=== PATIENT | male | born 1990 ===

== ENCOUNTER 2017-10-15 13:23 | Day surgery (SDC) | payer BC ==
[2017-10-15 13:24] VITALS: BMI 31.4
[2017-10-15] MEDS ORDERED: Sodium Chloride 0.9% 1,000 ML IV STA (15:09)
--- NOTE | 2017-10-15 15:12 | C.PDOC ---
History Of Present Illness 27 year old male is sent to the ED by Dr. Dee for evaluation of epistaxis that has been going on for a couple of days. Patient was seen by Dr. Dee who packed his nose B/L but patient still was complaining of blood oozing from his nose. Patient will be admitted for same day surgery in the OR for cauterization. Patient looks uncomfortable during examination and is currently c /o of pressure in his nose, denies headache, dizziness, CP, SOB, fever, chills, nausea, vomit. Time Seen by Provider: 10/15/17 13:43 Chief Complaint (Nursing): ENT Problem History Per: Patient History/Exam Limitations: None Onset/Duration Of Symptoms: Days Current Symptoms Are (Timing): Still Present Symptoms Have Been: Continuous Anticoagulant/Antiplatlet Use?: No Recent Aspirin Use: No Past Medical History Reviewed: Historical Data, Nursing Documentation, Vital Signs Vital Signs: Last Vital Signs Temp 99.7 F H 10/15/17 13:40 Pulse 78 10/15/17 17:43 Resp 20 10/15/17 17:43 BP 138/83 10/15/17 17:43 Pulse Ox 98 10/15/17 17:43 - Medical History PMH: No Chronic Diseases Surgical History: No Surg Hx Family History: States: Unknown Family Hx - Social History Hx Alcohol Use: Yes Hx Substance Use: No - Immunization History Hx Tetanus Toxoid Vaccination: No Review Of Systems Constitutional: Negative for: Fever, Chills ENT: Positive for: Nose Discharge Cardiovascular: Negative for: Chest Pain, Palpitations Respiratory: Negative for: Cough, Shortness of Breath Gastrointestinal: Negative for: Nausea, Vomiting, Abdominal Pain Genitourinary: Negative for: Dysuria, Hematuria Musculoskeletal: Negative for: Back Pain Skin: Negative for: Rash Neurological: Negative for: Weakness, Numbness Physical Exam - Physical Exam Appears: Non-toxic, Other (Uncomfortable ) Skin: Normal Color, Warm, Dry Head: Atraumatic, Normacephalic Eye(s): bilateral: Normal Inspection Nose: Epistaxis, Other (packing placed in both nosetrils, dry blod around nose and upper lip, no active bleeding ) Oral Mucosa: Moist Neck: Normal ROM, Supple Chest: Symmetrical Cardiovascular: Rhythm Regular, No Murmur Respiratory: Normal Breath Sounds, No Rales, No Rhonchi, No Wheezing Gastrointestinal/Abdominal: Soft, No Tenderness, No Guarding, No Rebound Extremity: Normal ROM, No Pedal Edema, No Calf Tenderness, No Deformity, No Swelling Neurological/Psych: Oriented x3, Normal Speech, Normal Cognition Gait: Steady ED Course And Treatment - Laboratory Results Result Diagrams: 10/15/17 15:29 10/15/17 15:29 O2 Sat by Pulse Oximetry: 97 (On RA) Pulse Ox Interpretation: Normal Progress Note: Plan: -Labs. -IV fluids. -Morphine 4 mg IV. -UA. Patient will be admitted to Dr. Dee's service for same day surgery. Disposition - Disposition Disposition: HOSPITALIZED Disposition Time: 15:12 Condition: STABLE - Clinical Impression Clinical Impression: Epistaxis - PA / BOX LOADER / Resident Statement MD/DO has reviewed & agrees with the documentation as recorded. - Scribe Statement The provider has reviewed the documentation as recorded by the Scribe Seth Bales All medical record entries made by the Scribe were at my direction and personally dictated by me. I have reviewed the chart and agree that the record accurately reflects my personal performance of the history, physical exam, medical decision making, and the department course for this patient. I have also personally directed, reviewed, and agree with the discharge instructions and disposition. Decision To Admit - Pt Status Changed To: Hospital Disposition Of: SDS- Endo,OR,Cath,IR - . Bed Request Type: Same Day Surgery Admitting Physician: Mario Dee Patient Diagnosis: Epistaxis
[2017-10-15 15:35] LABS: BASO # 0.1 K/uL (0.0-0.2); BASO % 0.6 % (0.0-2.0); EOS # 0.1 K/uL (0.0-0.7); EOS % 0.7 % (0.0-4.0); HEMOGLOBIN 14.6 g/dL (12.0-18.0); LYMPH # 2.1 K/uL (1.0-4.3); LYMPH % 21.7 % (20.0-40.0); MEAN CELL VOLUME 86.7 fL (80.0-94.0); MEAN CORPUSCULAR HEMOGLOBIN 29.4 pg (27.0-31.0); MEAN CORPUSCULAR HGB CONC 33.9 g/dL (33.0-37.0); MEAN PLATELET VOLUME 8.2 fL (7.2-11.7); MONO # 0.9 K/uL (0.0-0.8); NEUT # 6.6 K/uL (1.8-7.0); NRBC % 0.1 % (0.0-2.0); RBC 4.98 Mil/uL (4.40-5.90); RED CELL DISTRIBUTION WIDTH 12.6 % (11.5-14.5); WHITE BLOOD COUNT 9.7 K/uL (4.8-10.8)
[2017-10-15] MEDS ORDERED: Morphine 4 MG/ML VIAL ONE (15:36)
[2017-10-15 15:40] LABS: URINE BILIRUBIN NEGATIVE (NEGATIVE); URINE BLOOD NEGATIVE (NEGATIVE); URINE CLARITY Clear (Clear); URINE COLOR Yellow (YELLOW); URINE GLUCOSE (UA) NORMAL (Normal); URINE LEUKOCYTE ESTERASE NEG Leu/uL (Negative); URINE NITRATE NEGATIVE (NEGATIVE); URINE PROTEIN NEGATIVE (NEGATIVE); URINE UROBILINOGEN NORMAL mg/dL (0.2-1.0)
[2017-10-15 15:43] LABS: INR 1.1; PROTHROMBIN TIME 12.5 SECONDS (9.7-12.2)
[2017-10-15 15:55] LABS: ALB/GLOB RATIO 1.2 (1.0-2.1); ALBUMIN 4.4 g/dL (3.5-5.0); ALT/SGPT 55 U/L (21-72); AST/SGOT 29 U/L (17-59); BLOOD UREA NITROGEN 9 mg/dL (9-20); CALCIUM 8.8 mg/dl (8.6-10.4); GFR AFRICAN-AMERICAN > 60; GFR NON-AFRICAN AMERICAN > 60
[2017-10-15] MEDS ORDERED: HYDROmorphone 1 mg/ml ISec IVP STA (17:31)
[2017-10-15] MEDS ORDERED: Lactated Ringer's 1,000 ML IV ONE ×2 (18:19)
[2017-10-15] MEDS: Clindamycin 600mg/50ml NS 600 MG/50 ML BAG IVPB ONE ×2 (18:19→18:40)
[2017-10-15] MEDS ORDERED: EPINEPHrine 1:1000 Nasal Sol(30mL) ONE (18:31)
[2017-10-15] MEDS ORDERED: Midazolam 2 MG/2 ML VIAL ONE (18:33)
[2017-10-15] MEDS ORDERED: Rocuronium 10 mg/ml (5 ml) ONE (18:33)
[2017-10-15] MEDS ORDERED: Propofol 10 mg/ml Inj (20 ML) ONE ×2 (18:33→18:52)
[2017-10-15] MEDS ORDERED: Succinylcholine Chloride 20 mg/ml Syr (5 ml) IV ONE (18:33)
[2017-10-15] MEDS ORDERED: Acetaminophen-Codeine 300/30 mg Tab PO PRN (18:36)
[2017-10-15] MEDS ORDERED: Dextrose 5%/0.45% NS 1,000 ML IV SCH (18:45)
[2017-10-15] MEDS ORDERED: Esmolol 100 mg/10ml Inj IV ONE (18:58)
[2017-10-15] MEDS ORDERED: Neostigmine Methylsulfate 3mg/3ml Syringe IV ONE (19:28)
[2017-10-15 21:01] VITALS: BP 119/76; PULSE 95; RESP 18; TEMP 98.2; O2SAT 99
--- NOTE | 2017-10-16 01:57 | OP ---
PROCEDURE DATE: 10/15/2017 PREOPERATIVE DIAGNOSIS: Epistaxis, bilateral. POSTOPERATIVE DIAGNOSIS: Epistaxis, bilateral. PROCEDURE: Endoscopic cauterization of epistaxis. DESCRIPTION OF PROCEDURE: Patient was brought into the room, placed in supine position, anesthesia was initiated through an ET tube. The nasal packs were removed. Zero-degree scope was inserted into both nasal cavities. The posterolateral pharyngeal wall of the anterior aspect was cauterized. We used suction cautery to cauterize the area of the sphenopalatine artery on both sides. This was done first on the left and then on the right. No bleeding was noted. Patient was valsalva'd several times and bleeding was checked on both sides as the patient was being valsalva'd. No bleeding was noted. The scope was removed. Patient tolerated the procedure well. Mario Dee MD
== END 2017-10-15 22:00 | disposition home or self-care (01) ==
LOC: C.ER 13:23 → C.SDS 15:43
PROVIDERS: ATTEND Otolaryngology
DX: R04.0 Epistaxis (principal)
CPT/HCPCS: 31238; 80053; 81001; 82948; 85025; 85610; 85730; 86850; 86900; 96360; 96374; J1100; J1170; J2001; J2270; J2405; J2704; J2710; J2765; J3010; J7040; J7120

== ENCOUNTER 2017-10-21 17:34 | Inpatient (IN) | payer BC ==
[2017-10-21 17:34] VITALS: BMI 31.4
--- NOTE | 2017-10-21 19:03 | C.PDOC ---
History Of Present Illness 27 year old male sent in by Dr. Dee presents to ED with complaints of bleeding from his right nasal passage and denies past medical history. Patient notes he recently underwent surgery in his right nasal passage. Dr. Dee requests OR admission for cauterization. Time Seen by Provider: 10/21/17 18:59 Chief Complaint (Nursing): ENT Problem History Per: Patient History/Exam Limitations: None Current Symptoms Are (Timing): Still Present Past Medical History Reviewed: Historical Data, Nursing Documentation, Vital Signs Vital Signs: Last Vital Signs Temp 97.7 F 10/21/17 23:10 Pulse 98 H 10/21/17 23:10 Resp 20 10/21/17 23:10 BP 126/85 10/21/17 23:10 Pulse Ox 97 10/21/17 23:10 - Medical History PMH: No Chronic Diseases Other Surgeries: recent right nasal passage surgery Family History: States: Unknown Family Hx - Social History Hx Alcohol Use: Yes Hx Substance Use: Yes - Immunization History Hx Tetanus Toxoid Vaccination: No Review Of Systems Except As Marked, All Systems Reviewed And Found Negative. ENT: Positive for: Nose Discharge (bleeding from right nare) Physical Exam - Physical Exam Appears: No Acute Distress Skin: Normal Color, Warm, Dry Head: Atraumatic Eye(s): bilateral: Normal Inspection, PERRL, EOMI Ear(s): Bilateral: Normal Nose: Epistaxis (Mild bleed from right nare) Neck: Normal, Normal ROM ED Course And Treatment - Laboratory Results Result Diagrams: 10/21/17 19:10 10/21/17 19:10 O2 Sat by Pulse Oximetry: 98 (RA) Pulse Ox Interpretation: Normal - Physician Consult Information Outcome Of Conversation: 1900: d/w Dr. Dee @ bedside, ok to admit to OR now Medical Decision Making Medical Decision Making: R nasal epistaxis s/p recent R nasal surgery w Dr. Dee, to OR for cauterization now Disposition Doctor Will See Patient In The: Hospital Counseled Patient/Family Regarding: Studies Performed, Diagnosis - Disposition Disposition: HOSPITALIZED Disposition Time: 19:02 Condition: GOOD - Clinical Impression Clinical Impression: Epistaxis
[2017-10-21] MEDS ORDERED: EPINEPHrine 1:1000 Nasal Sol(30mL) ONE (19:12)
[2017-10-21] MEDS ORDERED: Clindamycin 600mg/50ml NS 600 MG/50 ML BAG IVPB ONE (19:15)
[2017-10-21 19:16] LABS: HEMOGLOBIN 13.8 g/dL (12.0-18.0); MEAN CELL VOLUME 85.3 fL (80.0-94.0); MEAN CORPUSCULAR HEMOGLOBIN 29.6 pg (27.0-31.0); MEAN CORPUSCULAR HGB CONC 34.7 g/dL (33.0-37.0); MEAN PLATELET VOLUME 8.2 fL (7.2-11.7); RBC 4.67 Mil/uL (4.40-5.90); RED CELL DISTRIBUTION WIDTH 12.6 % (11.5-14.5); WHITE BLOOD COUNT 9.5 K/uL (4.8-10.8)
--- NOTE | 2017-10-21 19:19 | CP.PCM.PN ---
Subjective - Date & Time of Evaluation Date of Evaluation: 10/21/17 Time of Evaluation: 19:18 - Subjective Subjective: Patient is bleeding on and off from the nose. Has moderate bleeding before. Since he is postop from the nasal surgery and can have another big bleeding episode anytime, will take to or eventhough he has something to eat 5 hours ago. Objective - Vital Signs/Intake and Output Vital Signs (last 24 hours): Temp Pulse Resp BP Pulse Ox 99.6 F 89 20 136/88 98 10/21/17 18:41 10/21/17 18:41 10/21/17 18:41 10/21/17 18:41 10/21/17 19:02
[2017-10-21] MEDS ORDERED: Rocuronium 10 mg/ml (5 ml) ONE (19:23)
[2017-10-21] MEDS ORDERED: Propofol 10 mg/ml Inj (20 ML) ONE (19:23)
[2017-10-21] MEDS ORDERED: Midazolam 2 MG/2 ML VIAL ONE (19:23)
[2017-10-21] MEDS ORDERED: Succinylcholine Chloride 20 mg/ml Syr (5 ml) IV ONE (19:23)
[2017-10-21] MEDS ORDERED: Lactated Ringer's 1,000 ML IV ONE ×2 (19:25→20:00)
[2017-10-21 19:27] LABS: INR 1.2; PROTHROMBIN TIME 13.6 SECONDS (9.7-12.2)
[2017-10-21 19:29] LABS: ALB/GLOB RATIO 1.1 (1.0-2.1); ALBUMIN 4.4 g/dL (3.5-5.0); ALT/SGPT 27 U/L (21-72); AST/SGOT 20 U/L (17-59); BLOOD UREA NITROGEN 10 mg/dL (9-20); CALCIUM 8.7 mg/dl (8.6-10.4); GFR AFRICAN-AMERICAN > 60; GFR NON-AFRICAN AMERICAN > 60
[2017-10-21] MEDS ORDERED: Lidocaine Hydrochloride 5 ML INJ ONE (20:16)
[2017-10-21] MEDS: HYDROmorphone 0.5 mg/0.5 ml ISec IVP PRN ×2 (20:35→20:50)
[2017-10-21] MEDS: Dextrose 5%/0.45% NS 1,000 ML IV SCH (21:50)
[2017-10-21] MEDS: Morphine 15 mg Immediate Release Tab PO PRN (23:47)
[2017-10-22 00:18] VITALS: RESP 20
[2017-10-22] MEDS: Morphine 15 mg Immediate Release Tab PO PRN ×3 (04:00→13:08)
[2017-10-22] MEDS: Dextrose 5%/0.45% NS 1,000 ML IV SCH ×3 (07:23→16:21)
--- NOTE | 2017-10-22 08:39 | CP.PCM.PN ---
Subjective - Date & Time of Evaluation Date of Evaluation: 10/22/17 Time of Evaluation: 08:38 - Subjective Subjective: s/p endoscopic nasal cautery nose: no epistaxis oc/op: no bloody pnd a/p: epistaxis controled d/c home f/u 1 week Objective - Vital Signs/Intake and Output Vital Signs (last 24 hours): Temp Pulse Resp BP Pulse Ox 98.6 F 81 20 121/79 95 10/22/17 08:24 10/22/17 08:24 10/22/17 08:24 10/22/17 08:24 10/22/17 08:24 Intake and Output: 10/22/17 10/22/17 06:59 18:59 Intake Total 200 Balance 200 - Medications Medications: Current Medications Dextrose/Sodium Chloride (Dextrose 5%/0.45% Ns 1000 Ml) 1,000 mls @ 100 mls/hr IV .Q10H [facility] Last Admin: 10/22/17 07:23 Dose: Not Given Morphine Sulfate (Morphine Immediate Release Tab) 15 mg PO Q4 PRN PRN Reason: Pain, moderate (4-7) Last Admin: 10/22/17 07:28 Dose: 15 mg - Labs Labs: 10/21/17 19:10 10/21/17 19:10 PT 13.6 SECONDS (9.7-12.2) H 10/21/17 19:10 INR 1.2 10/21/17 19:10 APTT 34 SECONDS (21-34) 10/21/17 19:10
[2017-10-22 11:43] LABS: BASO % 0.4 % (0.0-2.0); EOS # 0.1 K/uL (0.0-0.7); EOS % 0.8 % (0.0-4.0); HEMOGLOBIN 12.8 g/dL (12.0-18.0); LYMPH # 1.7 K/uL (1.0-4.3); LYMPH % 21.7 % (20.0-40.0); MEAN CORPUSCULAR HEMOGLOBIN 29.4 pg (27.0-31.0); MEAN CORPUSCULAR HGB CONC 33.8 g/dL (33.0-37.0); MEAN PLATELET VOLUME 8.2 fL (7.2-11.7); MONO % 12.8 % (0.0-10.0); NEUT # 5.1 K/uL (1.8-7.0); NEUT % 64.3 % (50.0-75.0); RBC 4.37 Mil/uL (4.40-5.90); RED CELL DISTRIBUTION WIDTH 12.6 % (11.5-14.5); WHITE BLOOD COUNT 7.9 K/uL (4.8-10.8)
[2017-10-22 12:13] LABS: ALB/GLOB RATIO 1.2 (1.0-2.1); ALBUMIN 3.9 g/dL (3.5-5.0); ALT/SGPT 25 U/L (21-72); AST/SGOT 25 U/L (17-59); BLOOD UREA NITROGEN 8 mg/dL (9-20); CALCIUM 8.9 mg/dl (8.6-10.4); GFR AFRICAN-AMERICAN > 60; GFR NON-AFRICAN AMERICAN > 60
[2017-10-22] MEDS: Sodium Chloride Nasal 0.65% Soln (30ml) NAS SCH ×2 (14:45→17:49)
[2017-10-22] MEDS: Oxycodone/Acetaminophen 5/325 mg Tab PO PRN ×2 (16:15→20:26)
--- NOTE | 2017-10-22 19:11 | CP.PCM.CON ---
History of Present Illness - History of Present Illness History of Present Illness: 27 yo man admitted with recurrent epistaxis, after DNS surgery, s/p cauterization x2, having repeat bleeding this AM. The patient denies easy bleeding, bruising, bleeding post dental work or post surgical bleeding. His mother gives a history of nose bleeds at a young age, that stopped on its own without intervention, has not had any bleeds since the age of 6. His mother also gives a history of ? sickle cell anemia, treated with vitamins at a young age Past Patient History - Past Medical History & Family History Past Medical History?: No - Past Social History Smoking Status: Former Smoker - CARDIAC Hx Cardiac Disorders: No - PULMONARY Hx Respiratory Disorders: No - NEUROLOGICAL Hx Neurological Disorder: No - HEENT Hx Epistaxis: Yes Other/Comment: deviated septum, had surgery on Oct 02, 2017, bled Oct 15 and had cauterization done - RENAL Hx Chronic Kidney Disease: No - ENDOCRINE/METABOLIC Hx Endocrine Disorders: No - HEMATOLOGICAL/ONCOLOGICAL Hx Blood Disorders: No - INTEGUMENTARY Hx Dermatological Problems: No - MUSCULOSKELETAL/RHEUMATOLOGICAL Hx Musculoskeletal Disorders: No Hx Falls: No - GASTROINTESTINAL Hx Gastrointestinal Disorders: No - GENITOURINARY/GYNECOLOGICAL Hx Genitourinary Disorders: No - PSYCHIATRIC Hx Substance Use: Yes - SURGICAL HISTORY Hx Surgeries: Yes Hx Orthopedic Surgery: Yes (rt ankle fracture s/p "screws and scarlett") Other/Comment: R FOOT SURGERY, Sinus surgery - ANESTHESIA Hx Anesthesia: Yes Hx Anesthesia Reactions: No Hx Malignant Hyperthermia: No Meds Allergies/Adverse Reactions: Allergies Allergy/AdvReac Type Severity Reaction Status Date / Time Penicillins Allergy RASH Verified 05/14/17 09:25 - Medications Medications: Current Medications Dextrose/Sodium Chloride (Dextrose 5%/0.45% Ns 1000 Ml) 1,000 mls @ 100 mls/hr IV .Q10H [facility] Last Admin: 10/22/17 16:21 Dose: Not Given Oxycodone/Acetaminophen (Percocet 5/325 Mg Tab) 2 tab PO Q4H PRN PRN Reason: Pain, moderate (4-7) Stop: 10/25/17 14:01 Last Admin: 10/22/17 16:15 Dose: 2 tab Sodium Chloride ([place] Baby Saline 30 Ml) 3 ml BRUNO TID [facility] Last Admin: 10/22/17 17:49 Dose: 1 spr Results - Vital Signs Recent Vital Signs: Last Vital Signs Temp 99.3 F 10/22/17 16:32 Pulse 85 10/22/17 16:32 Resp 20 10/22/17 16:32 BP 135/88 10/22/17 16:32 Pulse Ox 95 10/22/17 16:32 - Labs Result Diagrams: 10/22/17 11:26 10/22/17 11:26 Labs: Laboratory Results - last 24 hr 10/21/17 10/21/17 10/21/17 19:10 19:10 19:10 WBC 9.5 RBC 4.67 Hgb 13.8 Hct 39.8 MCV 85.3 MCH 29.6 MCHC 34.7 RDW 12.6 Plt Count 335 MPV 8.2 Neut % (Auto) Lymph % (Auto) Hitchcock % (Auto) Eos % (Auto) Baso % (Auto) Neut # Lymph # Hitchcock # Eos # Baso # PT 13.6 H INR 1.2 APTT 34 Sodium 135 Potassium 4.0 Chloride 95 L Carbon Dioxide 31 H Anion Gap 14 BUN 10 Creatinine 0.9 Est GFR ( Amer) > 60 Est GFR (Non-Af Amer) > 60 Random Glucose 107 Calcium 8.7 Total Bilirubin 1.3 AST 20 ALT 27 Alkaline Phosphatase 49 Total Protein 8.2 Albumin 4.4 Globulin 3.8 Albumin/Globulin Ratio 1.1 10/22/17 10/22/17 11:26 11:26 WBC 7.9 RBC 4.37 L Hgb 12.8 Hct 38.0 MCV 87.0 MCH 29.4 MCHC 33.8 RDW 12.6 Plt Count 298 MPV 8.2 Neut % (Auto) 64.3 Lymph % (Auto) 21.7 Hitchcock % (Auto) 12.8 H Eos % (Auto) 0.8 Baso % (Auto) 0.4 Neut # 5.1 Lymph # 1.7 Hitchcock # 1.0 H Eos # 0.1 Baso # 0.0 PT INR APTT Sodium 135 Potassium 4.4 Chloride 95 L Carbon Dioxide 32 H Anion Gap 12 BUN 8 L Creatinine 1.0 Est GFR ( Amer) > 60 Est GFR (Non-Af Amer) > 60 Random Glucose 119 H Calcium 8.9 Total Bilirubin 1.6 H AST 25 ALT 25 Alkaline Phosphatase 44 Total Protein 7.2 Albumin 3.9 Globulin 3.3 Albumin/Globulin Ratio 1.2 Assessment & Plan - Assessment and Plan (Free Text) Assessment: 27 yo man with persistent and recurrent epistaxis following surgery for deviated nasal septum, with a history of frequent nose bleeds as a child, current work up with normal platelets and coags. Will do preliminary platelet function testing and fibrinogen levels. Hold off on Von Willebrand testing for now. Above discussed with family
[2017-10-22 19:57] LABS: FUNCTIONING PLTS 296 K/uL; PLT BASE COUNT 309 K/uL; PLT(ADP) 13 K/uL
[2017-10-23] MEDS: Oxycodone/Acetaminophen 5/325 mg Tab PO PRN ×2 (00:28→04:23)
[2017-10-23] MEDS: Dextrose 5%/0.45% NS 1,000 ML IV SCH (01:04)
[2017-10-23] MEDS ORDERED: DiphenhydrAMINE 50 mg/ml Inj IVP STA (05:50)
[2017-10-23 08:42] VITALS: BP 117/78; PULSE 77; TEMP 98.7; O2SAT 97
--- NOTE | 2017-10-23 08:45 | CP.PCM.PN ---
Subjective - Date & Time of Evaluation Date of Evaluation: 10/23/17 Time of Evaluation: 08:44 - Subjective Subjective: 1 episode of mild anterior bleeding on right yesterday nose: no bleeding, old blodd clots noted a/p: epistaxis controled d/c home Objective - Vital Signs/Intake and Output Vital Signs (last 24 hours): Temp Pulse Resp BP Pulse Ox 98.7 F 77 20 117/78 97 10/23/17 07:00 10/23/17 07:00 10/23/17 07:00 10/23/17 07:00 10/23/17 07:00 Intake and Output: 10/23/17 10/23/17 06:59 18:59 Intake Total 1400 Balance 1400 - Medications Medications: Current Medications Dextrose/Sodium Chloride (Dextrose 5%/0.45% Ns 1000 Ml) 1,000 mls @ 100 mls/hr IV .Q10H [facility] Last Admin: 10/23/17 01:04 Dose: 100 mls/hr Oxycodone/Acetaminophen (Percocet 5/325 Mg Tab) 2 tab PO Q4H PRN PRN Reason: Pain, moderate (4-7) Stop: 10/25/17 14:01 Last Admin: 10/23/17 04:23 Dose: 2 tab Sodium Chloride ([place] Baby Saline 30 Ml) 3 ml BRUNO TID [facility] Last Admin: 10/22/17 17:49 Dose: 1 spr - Labs Labs: 10/22/17 11:26 10/22/17 11:26 PT 13.6 SECONDS (9.7-12.2) H 10/21/17 19:10 INR 1.2 10/21/17 19:10 APTT 34 SECONDS (21-34) 10/21/17 19:10
[2017-10-23] MEDS: Sodium Chloride Nasal 0.65% Soln (30ml) NAS SCH (10:20)
--- NOTE | 2017-11-08 23:14 | OP ---
PROCEDURE DATE: 10/21/2017 PREOPERATIVE DIAGNOSIS: Right epistaxis. POSTOPERATIVE DIAGNOSIS: Right epistaxis. PROCEDURE: Endoscopic cauterization of right epistaxis. SIGNIFICANT FINDINGS: Possible bleeding area noted in the posterior lateral wall of the nasal cavity inferiorly. DESCRIPTION OF PROCEDURE: The patient was brought into the room, placed in a supine position. Anesthesia was initiated through an ET tube. The patient was draped in the usual manner. Adrenaline-soaked pledgets were inserted into the nasal cavity and removed. After five minutes, a zero-degree scope was inserted into the right nasal cavity, passed to the nasopharynx. Bleeding area possible was noted in the area of the sphenopalatine artery on the lateral wall of the right nasal cavity. Suction cautery was used to cauterize the area. Bleeding was noted to be controlled. The patient was valsalva'd several times. No bleeding was noted. Scope was removed. The patient tolerated the procedure well. Mario Dee MD
== END 2017-10-23 10:30 | disposition home or self-care (01) | DRG 983 ==
LOC: C.ER 17:34 → C.9E 18:59 → C.ER 19:03 → C.5S 20:48
PROVIDERS: ADMIT Otolaryngology; ATTEND Otolaryngology
PROC: 0W3Q7ZZ Control Bleeding in Respiratory Tract, Via Natural or Artificial Opening (ICD-10-PCS; principal; 2017-10-21 19:17)
DX: R04.0 Epistaxis (principal); D57.1 Sickle-cell disease without crisis; Z87.891 Personal history of nicotine dependence